=== PATIENT | male | born 1935 | race Caucasian/White ===

== ENCOUNTER 2016-06-26 12:53 | Emergency (ER) | payer OTHER ==
[~2016-06-26] VITALS: Ht 182.9 cm; Wt 113.4 kg
[~2016-06-26 12:53] MED LIST: AMOXIL500 MG PO; CIPRO 500MG TA500 MG PO; NEURONTIN100 M1 PO; VALACYCLOVIR1000 MG PO; VICODIN 5-3001 EACH PO
[2016-06-26 15:41] LABS: ABSOLUTE BASOPHIL COUNT 0.1 /CUMM (0.0-0.2); ABSOLUTE EOSINOPHIL COUNT 0.2 /CUMM (0.0-0.7); ABSOLUTE GRANULOCYTE CT 7.5 /CUMM (1.4-6.5); EOSINOPHIL % 2.2 % (0-5); GRANULOCYTE % 69.2 % (42.2-75.2); HEMATOCRIT 48.9 % (42-52); MEAN CORPUSCULAR HGB 31.2 PG (27.0-31.0); MEAN CORPUSCULAR HGB CONC 33.5 G/DL (33.0-37.0); MEAN CORPUSCULAR VOLUME 93.3 FL (80.0-94.0); PLATELET COUNT 312 /CUMM (130-400); RED BLOOD CELL CT 5.25 /CUMM (4.70-6.10); WHITE BLOOD CELL COUNT 10.9 /CUMM (4.8-10.8)
--- NOTE | 2016-06-26 16:18 | RADIOLOGY REPORT ---
EXAMINATION: XR ABDOMEN WITH PA CHEST CLINICAL INDICATION: Upper abdominal pain, left hip pain COMPARISON: None TECHNIQUE: Frontal chest, AP pelvis, KUB, 2 views left hip FINDINGS: Chest: The cardiac silhouette is within normal range. The mediastinal contours are unremarkable. The lungs are clear without consolidation or effusion. No pneumothorax. Pelvis: There is mild narrowing of the hip joints bilaterally, stable compared to 2011. The ilioischial and iliopectineal lines appear intact. The visualized portions of the sacrum are unremarkable. No acute fracture. No abnormal soft tissue calcification. KUB: No intra-abdominal free air. A few air-fluid levels are present in the right upper quadrant. There are no dilated loops of large or small bowel. There is a relative paucity of gas in the pelvis, rectal region. Rounded calcified structures in the right upper quadrant most likely represent gallstones. Left hip: The femoral head is normal the located within the acetabulum. There is no acute fracture or subluxation. Mild joint space narrowing as described. IMPRESSION: 1. Minimal degenerative changes involving the left hip. 2. No intra-abdominal free air. 3. Nonspecific bowel gas pattern. 4. No acute cardiopulmonary process. 5. Cholelithiasis. If clinically appropriate, consider dedicated right upper quadrant ultrasound.
--- NOTE | 2016-06-26 16:50 | ED GI/GU/ABDOMINAL COMPLAINT ---
History of Present Illness General Chief Complaint: General Adult Stated Complaint: pain all over Source: patient, old records Exam Limitations: no limitations Vital Signs & Intake/Output Vital Signs & Intake/Output Vital Signs Date Time Temp Pulse Resp B/P B/P Pulse O2 O2 Flow FiO2 Mean Ox Delivery Rate 06/26 1612 97.1 84 18 144/64 95 Room Air 06/26 1511 Room Air 06/26 1309 98.2 94 18 146/76 96 Room Air Allergies Coded Allergies: No Known Allergies (06/26/16) Reconcile Medications No Known Home Medications Triage Note: PT TO ED WITH MULTIPLE COMPLAINTS. PT HAS HAD "GRABBING ABD PAIN" SINCE 03/02/16. PT BELIEVES HIS "SHINGLES HAS RETURNED" COMPLAINING OF PAIN ALL OVER, MOSTLY IN ABD. DENIES CP/SOB. Triage Nurses Notes Reviewed? yes Onset: 5 months Duration: continues in ED, waxing and waning, months Timing: recent history Quality/Severity: aching, burning, cramping, mild, moderate Location: epigastric Radiation: RUQ Activities at Onset: rest Prior Abdominal Problems: none Past Sexual History: Unobtainable at this time No Modifying Factors: none Associated Symptoms: abdominal pain, lower back pain, left hip pain HPI: 5 months prior to admission patient developed shingles on his lower back was prescribed Valtrex gabapentin. He then developed epigastric burning aching occurring intermittently radiating to right side. He continues to have scarring of shingles on his lower back. He also complains of left hip sharp constant nonradiating pain worse with movement. He denies fever chills nausea vomiting diarrhea chest pain cough shortness breath headache dysuria. Past History Travel History Traveled to [place] past 21 day No Medical History Any Pertinent Medical History? 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 No Review of Systems Review of Systems Constitutional: Reports: no symptoms. EENTM: Reports: no symptoms. Respiratory: Reports: no symptoms. Cardiovascular: Reports: no symptoms. GI: Reports: see HPI, abdominal pain. Genitourinary: Reports: no symptoms. Musculoskeletal: Reports: see HPI, joint pain, muscle pain. Skin: Reports: see HPI, rash. Neurological/Psychological: Reports: no symptoms. Hematologic/Endocrine: Reports: no symptoms. Immunologic/Allergic: Reports: no symptoms. All Other Systems: Reviewed and Negative Physical Exam Physical Exam General Appearance: well developed/nourished, alert, awake, anxious, mild distress, obese Head: atraumatic, normal appearance Eyes: Bilateral: normal appearance, PERRL, EOMI, normal inspection. Ears, Nose, Throat, Mouth: hearing grossly normal, moist mucous membrane Neck: normal inspection, supple, full range of motion, normal alignment Respiratory: normal breath sounds, chest non-tender, no respiratory distress, quiet respiration, lungs clear Cardiovascular: regular rate/rhythm, normal peripheral pulses, norml femoral pulses equa Peripheral Pulses: 4+ carotid (R), 4+ carotid (L) Gastrointestinal: normal bowel sounds, soft, non-tender, no organomegaly, hernia (reducible) Male Genitals: normal genitalia Back: normal range of motion, no vertebral tenderness Extremities: normal range of motion, no ligament instability Neurologic/Psych: no motor/sensory deficits, awake, alert, oriented x 3, normal gait, normal mood/affect, epic beacon specialists II-XII nml as tested Skin: intact, rash, drying herpetic rash without vesicular leisons Core Measures ACS in differential dx? No Severe Sepsis Present: No Septic Shock Present: No Progress Differential Diagnosis: biliary colic, diverticulitis, gastritis, pancreatitis, PUD/GERD Plan of Care: Orders Procedure Date/time Status LIPASE 06/26 1516 Complete COMPREHENSIVE METABOLIC PANEL 06/26 1516 Complete CBC WITHOUT DIFFERENTIAL 06/26 1516 Complete Laboratory Tests 06/26/16 1532: Anion Gap 13, Estimated GFR > 60, BUN/Creatinine Ratio 16.7, Glucose 95, Calcium 9.1, Total Bilirubin 1.6 H, AST 41, ALT 43, Alkaline Phosphatase 67, Total Protein 7.1, Albumin 4.1, Globulin 3.0, Albumin/Globulin Ratio 1.4, Lipase 71, CBC w Diff NO MAN DIFF REQ, RBC 5.25, MCV 93.3, MCH 31.2 H, RDW 15.0 H, MPV 8.0, Gran % 69.2, Lymphocytes % 17.7 L, Monocytes % 9.9 H, Eosinophils % 2.2, Basophils % 1.0, Absolute Granulocytes 7.5 H, Absolute Eosinophils 0.2, Absolute Basophils 0.1, PUBS MCHC 33.5 Diagnostic Imaging: Viewed by Me: Radiology Read. Discussed w/RAD: Radiology Read. Radiology Impression: 1. Minimal degenerative changes involving the left hip. 2. No intra-abdominal free air. 3. Nonspecific bowel gas pattern. 4. No acute cardiopulmonary process. 5. Cholelithiasis. If clinically appropriate, consider dedicated right upper quadrant ultrasound. CXR Impression: no acute abnormality Initial ED EKG: none Departure Departure Time of Disposition: 1758 Disposition: HOME OR SELF CARE Condition: Stable Clinical Impression Primary Impression: Abdominal pain Qualifiers: Abdominal location: epigastric Qualified Code: R10.13 - Epigastric pain Secondary Impressions: Arthritis, hip Shingles rash Qualifiers: Herpes zoster complications: without complications Qualified Code: B02.9 - Zoster without complications Referrals: SIOBHAN NEWBERRY,YOLANDE Junior (PCP/Family) ARGENTINA NEWBERRY,ZEENAT Barker Call for GI follow up Departure Forms: Customer Survey General Discharge Information Prescriptions: Current Visit Scripts Famotidine (Pepcid) 1 TAB PO BID #60 TAB Hyoscyamine Sulfate (Levsin-Sl) 1-2 TAB SL Q4P PRN abd pain #60 TAB Tramadol HCl (Ultram) 1-2 TAB PO Q6PRN PRN severe pain #30 TAB
[2016-06-26] MEDS ORDERED: LEVSIN-SL0.125 MG SL (18:00)
[2016-06-26] MEDS ORDERED: ULTRAM50 M1 PO (18:00)
[2016-06-26] MEDS ORDERED: PEPCID20 M1 PO (18:00)
[2016-06-26 18:13] VITALS: BP 144/64
== END 2016-06-26 18:23 ==
LOC: ERH 12:53
PROVIDERS: Emergency Medicine
DX: R10.13 Epigastric pain (principal); M16.12 Unilateral primary osteoarthritis, left hip; B02.9 Zoster without complications
CPT/HCPCS: 73502-LT; 74022; 96374; 96375; J0131; J2765

== ENCOUNTER 2017-11-18 22:31 | Emergency (ER) | payer OTHER ==
[~2017-11-18] VITALS: Ht 182.9 cm; Wt 124.3 kg
[~2017-11-18 22:31] MED LIST changes: +LEVSIN-SL0.125 MG SL; +PEPCID20 M1 PO; +ULTRAM50 M1 PO
[2017-11-18 23:12] LABS: ABSOLUTE BASOPHIL COUNT 0.1 /CUMM (0.0-0.2); ABSOLUTE EOSINOPHIL COUNT 0.5 /CUMM (0.0-0.7); ABSOLUTE GRANULOCYTE CT 4.5 /CUMM (1.4-6.5); ABSOLUTE LYMPH COUNT 2.4 /CUMM (1.2-3.4); ABSOLUTE MONOCYTE COUNT 0.8 /CUMM (0.10-0.60); BASOPHIL % 1.6 % (0.0-2.0); EOSINOPHIL % 5.7 % (0-5); GRANULOCYTE % 54.4 % (42.2-75.2); HEMATOCRIT 43.2 % (42-52); MEAN CORPUSCULAR HGB 34.3 PG (27.0-31.0); MEAN CORPUSCULAR HGB CONC 33.4 G/DL (33.0-37.0); MEAN CORPUSCULAR VOLUME 102.9 FL (80.0-94.0); MEAN PLATELET VOLUME 7.4 FL (7.4-10.4); PLATELET COUNT 369 /CUMM (130-400); RBC DISTRIBUTION WIDTH 16.1 % (11.5-14.5); WHITE BLOOD CELL COUNT 8.2 /CUMM (4.8-10.8)
--- NOTE | 2017-11-19 00:33 | RADIOLOGY REPORT ---
EXAMINATION: XR PORTABLE CHEST CLINICAL INFORMATION: Chest pain. COMPARISON: February 19, 2007 chest TECHNIQUE: Portable frontal view of the chest was obtained. 12:10 AM FINDINGS: Heart size is enlarged. There is no acute change of the chest. No pulmonary vascular congestion. No infiltrate or pleural effusion. There is no pneumothorax. IMPRESSION: No acute abnormality of the chest.
--- NOTE | 2017-11-19 00:51 | ED CARDIAC/CP/PALPITATIONS ---
History of Present Illness General Chief Complaint: General Adult Stated Complaint: "AT HOME HIGH BP 176/81 HR 81,DEHYDRATION, CP" Source: patient Exam Limitations: no limitations Vital Signs & Intake/Output Vital Signs & Intake/Output Vital Signs Date Time Temp Pulse Resp B/P B/P Pulse O2 O2 Flow FiO2 Mean Ox Delivery Rate 11/19 0317 98.0 88 16 158/78 99 Room Air 11/19 0125 97.6 82 16 181/74 96 Room Air 11/18 2300 97.8 74 16 178/83 95 Room Air ED Intake and Output 11/19 0000 11/18 1200 Intake Total Output Total Balance Patient 274 lb Weight Weight Reported by Patient Measurement Method Allergies Coded Allergies: No Known Allergies (06/26/16) Reconcile Medications Famotidine (Pepcid) 20 MG TABLET 1 TAB PO BID gastritis Hyoscyamine Sulfate (Levsin-Sl) 0.125 MG TAB.SUBL 1-2 TAB SL Q4P PRN abd pain Tramadol HCl (Ultram) 50 MG TABLET 1-2 TAB PO Q6PRN PRN severe pain Triage Note: arrives to ED for "high bp" of 176/81 taken at home well logging captain mud analysis. also c/o "soreness" to L chest. pt awake/alert with easy wob. Triage Nurses Notes Reviewed? yes HPI: 82-year-old male with no past medical history presenting with chest pain that is left-sided anterior chest wall for 3 days. Patient reports a sedentary lifestyle mostly staying at home and watching TV. He denies performing any physical activity at the onset of chest pain. He also reports getting a new blood pressure device that he wears on his wrist and noting elevated systolic pressures in the 170s. This was concerning to him in assoication with chest pain, so he decided to come to the emergency department. He states the pain is like a soreness; non radiating; no associated SOB. He denies fever, chills, n/v /d, abdominal pain. Of note he does state that he started taking a over-the- counter weight loss supplement called Lipozene (active ingredient: glucomannan) 3 days ago. This coinsides with his onset of chest pain. He states he took a baby aspirin and felt better. He has been sx free since this morning. (Don NEWBERRY,Karie) Past History Travel History Traveled to [place] past 21 day No Medical History Any Pertinent Medical History? 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 No (Karie Ochoa MD) Review of Systems Review of Systems Constitutional: Reports: no symptoms. EENTM: Reports: no symptoms. Respiratory: Reports: no symptoms. Cardiovascular: Reports: chest pain, peripheral edema. Denies: palpitations. GI: Reports: no symptoms. Genitourinary: Reports: no symptoms. Musculoskeletal: Reports: no symptoms. Skin: Reports: no symptoms. Neurological/Psychological: Reports: other (unsteady; bumping into things). (Karie Ochoa MD) Physical Exam Physical Exam General Appearance: well developed/nourished, no apparent distress, alert, awake , comfortable, obese Head: atraumatic, normal appearance Eyes: Bilateral: normal appearance. Neck: normal inspection, supple Respiratory: normal breath sounds, chest non-tender, no respiratory distress Cardiovascular: regular rate/rhythm Peripheral Pulses: 2+ radial (R), 2+ radial (L) Gastrointestinal: normal bowel sounds, soft, non-tender Extremities: BLE with pitting edema up to level of knee Skin: intact, normal color, warm/dry Core Measures ACS in differential dx? Yes CVA/TIA Diagnosis No Sepsis Present: No Sepsis Focused Exam Completed? No (Karie Ochoa MD) Progress Differential Diagnosis: costochondritis, musculoskeletal pain, angina Plan of Care: Orders Procedure Date/time Status TROPONIN LEVEL 11/19 0145 Complete EKG 11/19 0145 Active Add-on Test (ER Only) 11/19 0117 Active D-DIMER 11/18 2303 Complete TROPONIN LEVEL 11/18 2301 Complete MAGNESIUM 11/18 2301 Complete COMPREHENSIVE METABOLIC PANEL 11/18 2301 Complete CBC WITHOUT DIFFERENTIAL 11/18 2301 Complete EKG 11/18 2238 Active Laboratory Tests 11/19/17 0157: Troponin I < 0.01 11/18/17 2303: Anion Gap 7, Estimated GFR > 60, BUN/Creatinine Ratio 18.0, Glucose 96, Calcium 8.9, Magnesium 2.0, Total Bilirubin 0.9, AST 23, ALT 31, Alkaline Phosphatase 59 , Troponin I < 0.01, Total Protein 6.2 L, Albumin 3.7, Globulin 2.5, Albumin/ Globulin Ratio 1.5, D-Dimer High Sensitivty < 200, CBC w Diff NO MAN DIFF REQ, RBC 4.20 L, MCV 102.9 H, MCH 34.3 H, MCHC 33.4, RDW 16.1 H, MPV 7.4, Gran % 54.4, Lymphocytes % 28.9, Monocytes % 9.4 H, Eosinophils % 5.7 H, Basophils % 1.6, Absolute Granulocytes 4.5, Absolute Lymphocytes 2.4, Absolute Monocytes 0.8 H, Absolute Eosinophils 0.5, Absolute Basophils 0.1 Initial ED EKG: normal axis, none, normal intervals, normal p-waves, normal QRS complex, normal sinus rhythm Comments: 82 year old obese male presenting with 3 day history of chest pain, elevated blood pressure, and recent ingestion of OTC diet supplement. Less likely to be cardiac in nature given sx resolution since this morning; negative troponin however cardiac origin cannot be ruled out completely. May be related to side effect from weight loss supplement OTC. Plan -EKG -trop (first trop negative); repeat trop -CXR -Call Cardiology for recs (Karie Ochoa MD) Diagnostic Imaging: Viewed by Me: Radiology Read. Discussed w/RAD: Radiology Read. CXR Impression: PATIENT: CHEYANNE CHIN PRESENT AGE: 82 PATIENT ACCOUNT NO: [id number] : 35 LOCATION: [facility] ORDERING PHYSICIAN: Checo Downey MD SERVICE DATE: 11/18/17 EXAM TYPE: RAD - XRY- PORTABLE CHEST XRAY EXAMINATION: XR PORTABLE CHEST CLINICAL INFORMATION: Chest pain. COMPARISON: February 19, 2007 chest TECHNIQUE: Portable frontal view of the chest was obtained. 12:10 AM FINDINGS: Heart size is enlarged. There is no acute change of the chest. No pulmonary vascular congestion. No infiltrate or pleural effusion. There is no pneumothorax. IMPRESSION: No acute abnormality of the chest. DICTATED BY: Damian Siddiqui MD DATE/TIME DICTATED:11/19/1728 SOFTWARE QUALITY TESTER:HERSON DATE/TIME TRANSCRIBED:11/19/1728 CONFIDENTIAL, DO NOT COPY WITHOUT APPROPRIATE AUTHORIZATION. <Electronically signed in Other Vendor System> SIGNED BY: Damian Siddiqui MD 11/19/17 0033 (Checo Downey MD) Departure Departure Disposition: STILL A PATIENT Condition: Stable Referrals: Tony NEWBERRY,Jhonny Junior (PCP/Family) Departure Forms: Customer Survey General Discharge Information (Don NEWBERRY,Karie) Departure Clinical Impression Primary Impression: Chest pain Secondary Impressions: Elevated blood pressure reading Comments 11/19/17, 2:03AM... discussed with dr. pozo, systems planner, who is in accord with plan for trop/ekg x2... he will follow up with dr. pozo in the office. 11/19/17, 5am... pt informed several times... he has been chest pain free without dyspnea, fever. He is safe for discharge and will follow up with PMD. Resident Co-Sign Statement Statement: ED Attending supervision documentation- [x] I saw and evaluated the patient. I have also reviewed all the pertinent lab results and diagnostic results. I agree with the findings and the plan of care as documented in the Resident's documentation. 11/19/17, 3:26am... chest pain free in the ED... last episode of chest pain was 14 in the morning. trop neg/ekg neg x 2... safe for discharge. discussed with dr. pozo... pt referred to dr. pozo for follow up. [] I have reviewed the ED Record and agree with the Resident's documentation. [] Additions or exceptions (if any) to the Resident's note and plan are summarized below: [] (Nasreen NEWBERRY,Checo Ca) Critical Care Note Critical Care Note Critical Care Time: non-applicable (Nasreen NEWBERRY,Checo Ca)
[2017-11-19 03:17] VITALS: BP 158/78
== END 2017-11-19 03:36 ==
LOC: ERH 22:31
PROVIDERS: Emergency Medicine
DX: R07.89 Other chest pain (principal); I10 Essential (primary) hypertension; K43.9 Ventral hernia without obstruction or gangrene
CPT/HCPCS: 71045; 93005; 93010